=== PATIENT | female | born 1945 | race Caucasian/White ===

== ENCOUNTER 2017-01-06 09:44 | Outpatient (CLI) | payer OTHER ==
--- NOTE | 2017-01-06 14:34 | DIAGNOSTIC IMAGING REPORT ---
PROCEDURE: MG BILATERAL SCREENING W/CAD INDICATION: Screening. Family history breast carcinoma (mother). TECHNIQUE: Bilateral CC and MLO digital views. COMPARISON: Compared to 07/31/2014, 06/13/2013, and 04/09/2010. FINDINGS: Computer-aided detection applied. Moderately dense with a few dystrophic calcifications. No change. IMPRESSION: 1. Negative mammogram. RESULT CODE: 1- Negative. A. A negative report should not delay biopsy if a dominant or clinically suspicious mass is present. 10-15% of cancers are not identified by x-ray. B. A negative report may reinforce clinical impression. C. Adenosis and dense breasts may obscure an underlying neoplasm. D. False positive reports average 6-10%. E.. A yearly screening mammogram is recommended. A reminder letter will be scheduled.
== END 2017-01-06 23:00 ==
LOC: MAM SRH 09:44
DX: Z12.31 Encounter for screening mammogram for malignant neoplasm of breast (principal); Z80.3 Family history of malignant neoplasm of breast